=== PATIENT | male | born 1945 | race Caucasian/White ===

== ENCOUNTER 2016-10-07 07:18 | Emergency (ER) | payer OTHER ==
[~2016-10-07] VITALS: Ht 180.3 cm; Wt 8606.0 kg
[~2016-10-07 07:18] MED LIST: ASPERDRINK81 MG PO; FISH OIL 1,0001 EACH PO; MEDROL DOSEPAK4 MG PO; VALIUM5 MG PO
[2016-10-07 07:38] VITALS: BP 154/100
[2016-10-07 08:01] VITALS: BP 175/99
[2016-10-07 08:31] VITALS: BP 166/104
[2016-10-07 08:50] LABS: EOSINOPHIL (%) 0.3 % (0-5); HEMATOCRIT 40.3 % (38.0-50.0); MCH 31.1 PG (29.0-34.0); MCHC 34.2 G/DL (30.0-36.0); MCV 90.8 FL (86-99); MEAN PLAT.VOLUME 11.2 uM^3 (9.0-12.4); MONOCYTE (%) 8.5 % (3-12); MONOCYTE COUNT 0.3 K/uL (0-0.8); NEUTROPHIL (%) 60.4 % (45-76); NEUTROPHIL COUNT 1.9 K/uL (1.8-6.4); PLATELET COUNT 92 K/uL (156-360); RBC DIS.WIDTH-CV 15.8 % (11.8-14.6); RBC DIS.WIDTH-SD 50.6 % (39-53); RED BLOOD COUNT 4.44 M/uL (4.00-5.50); WHITE BLOOD COUNT 3.2 K/uL (4.1-10.2)
[2016-10-07 09:01] VITALS: BP 179/100
[2016-10-07 09:02] LABS: CHLORIDE 107 mEq/L (99-109); POTASSIUM 4.3 mEq/L (3.7-5.4); SODIUM 138 mEq/L (136-147)
[2016-10-07 09:04] LABS: GLUCOSE 118 mg/dL (70-99)
[2016-10-07 09:05] LABS: D-DIMER ELISA 0.65 mg/L FEU (< 0.57); INTER. NORMALIZED RATIO 1.1; PTT 25.2 (25-32)
[2016-10-07 09:06] LABS: ANION GAP 9 MEQ/L (2-14)
[2016-10-07 09:08] LABS: GFR ESTIMATE (CALCULATED) > 59 mL/min/
[2016-10-07 09:09] LABS: UREA NITROGEN (BUN) 15 mg/dL (9-23)
[2016-10-07 09:11] LABS: TROP-I INTERPRETATION NEGATIVE; TROPONIN-I < 0.01 ng/mL (0.0-0.30)
[2016-10-07] MEDS ORDERED: LASIX40 MG PO (11:07)
[2016-10-07] MEDS ORDERED: K-DUR20 MEQ PO (11:07)
[2016-10-07 11:19] VITALS: BP 179/100
== END 2016-10-07 11:19 | disposition left against medical advice (07) ==
LOC: EME 07:18
PROVIDERS: Emergency Medicine
DX: I11.0 Hypertensive heart disease with heart failure (principal); I50.9 Heart failure, unspecified
CPT/HCPCS: 71010; 71275; 80048; 84484; 85025; 85379; 85610; 85730; 93005; 99281; 99285; J7030